=== PATIENT | female | born 1980 | race Caucasian/White ===

== ENCOUNTER 2018-01-16 07:10 | Inpatient (IN) | payer BC ==
[~2018-01-16 07:10] MED LIST: ELECTROLYTE-148 SOLN 1,000 ML IV SCH
[2018-01-16 08:12] VITALS: BMI 29.7
[2018-01-16 08:41] LABS: BASO % 0.3 % (0-2.0); EOS % 2.6 % (0-4.5); HEMATOCRIT 37.1 % (32.4-45.2); HEMOGLOBIN 12.2 GM/dL (10.7-15.3); LYMPH % 31.2 % (8-40); MCH 28.3 pg (25.7-33.7); MEAN CELL VOLUME 85.7 fl (80-96); MEAN PLT VOLUME 10.7 fl (7.5-11.1); MONO % 6.2 % (3.8-10.2); NEUT % 59.7 % (42.8-82.8); PLATELET COUNT 138 K/MM3 (134-434); RBC 4.33 M/mm3 (3.60-5.2); RDW 13.8 % (11.6-15.6); WHITE BLOOD COUNT 6.9 K/mm3 (4.0-10.0)
[2018-01-16 08:54] LABS: INR 0.91 (0.83-1.09); PROTHROMBIN TIME (PATIENT) 10.7 SEC (9.7-13.0)
[2018-01-16 08:56] LABS: ACTIVATED PTT 26.1 SECONDS (25.2-36.5)
[2018-01-16] MEDS ORDERED: TUBERCULIN PPD 5 TU/0.1ML SYRINGE (IN PATIENT USE ONLY) ID ONE (09:00)
[2018-01-16] MEDS ORDERED: PROMETHAZINE HCL 25 MG/1 ML VIAL IVPB ONE (09:02)
[2018-01-16] MEDS ORDERED: BUTORPHANOL TARTRATE 1 MG/ML VIAL IVPB ONE (09:02)
[2018-01-16 09:06] LABS: ANION GAP 9 MMOL/L (8-16); BLOOD UREA NITROGEN 10 mg/dL (7-18); CALCIUM 8.1 mg/dL (8.5-10.1); CHLORIDE 109 mmol/L (98-107); CO2 22 mmol/L (21-32); CREATININE 0.6 mg/dL (0.55-1.3); GLUCOSE,RANDOM 69 mg/dL (74-106); POTASSIUM 4.1 mmol/L (3.5-5.1); SODIUM 140 mmol/L (136-145)
--- NOTE | 2018-01-16 09:10 | HP ---
Past Medical History - Primary Care Physician PCP:: Carlos Wong - Admission Chief Complaint: 37yo P1 with at EGA 40w4d admitted in early spontaneous labor. History of Present Illness: Pt was supposed to come if for labor induction but presented in spontaneous labor. Post term AMA History Source: Patient, Medical Record Limitations to Obtaining History: No Limitations - Past Medical History EXTERNAL AUDITOR: No: Alzheimer's, CVA, Dementia, Migraine, Multiple Sclerosis, Peripheral Neuropathy, Parkinson's, Seizure, Syncope, TIA, Vertigo, Other Cardiovascular: No: AFIB, Aneurysm, Aortic Insufficiency, Aortic Stenosis, CAD, CHF, Deep Vein Thrombosis, HTN, Hyperlipdemia, NH, Mitral Insufficiency, Mitral Stenosis, Murmur, Pulmonary Hypertension, Other Pulmonary: No: Asthma, Bronchitis, Cancer, COPD, O2 Dependent, Pneumonia, Previously Intubated, Pulmonary Embolus, Pulmonary Fibrosis, Sleep Apnea, Other Gastrointestinal: No: Ascites, Cancer, Constipation, Crohn's Disease, Diverticulitis, Diverticulosis, Esophageal Varices, Gastritis, GERD, GI Bleed, Hemorrhoids, Hiatal Hernia, Inflamatory Bowel Disease, Irritable Bowel Disease, Pancreatitis, Peptic Ulcer Disease, Ulcerative Colitis, Other Hepatobiliary: No: Cirrhosis, Cholelithiasis, Cholecystitis, Choledocholithiasis , Hepatitis A, Hepatitis B, Hepatitis C, Other Renal/: No: Renal Failure, Renal Inusuff, BPH, Cancer, Hematuria, Hemodialysis , Neurogenic Bladder, Renal Calculi, UTI, Other Reproductive: No: Ectopic , Endometriosis, Fibroids, PID, Polycystic Ovary Syndrome, Postmenopausal, Other ...: 2 ...Para: 1 ...Term: 1 ...: 0 ...Spon : 0 ...Induced : 0 ...Multiple Gestation: 0 ...LMP: 04/10/17 ... Weeks Gestation by Dates: 40.4 ...EDC by Dates: 01/15/18 ...EDC by Sono: 01/12/18 Heme/Onc: No: Anemia, B12 Deficiency, Bleeding Disorder, Cancer, Current Chemotherapy, Current Radiation Therapy, Hemochromatosis, Hypercoaguable State, Myeloproliferative Synd, Sickle Cell Disease, Sickle Cell Trait, Thrombocytopenia, Other Infectious Disease: No: AIDS, C-Diff, Herpes Zoster, HIV, MRSA, STD's, Tuberculosis, VREF, Other Psych: No: Addictions, Anxiety, Bipolar, Depression, Panic, Psychosis, Schizophrenia, Other Musculoskeletal: No: Bursitis, Chronic low back pain, Hemiparesis, Hemiplegia, Osteoarthritis, Paraplegia, Other Rheumatology: No: Fibromyalgia, Gout, Lupus, Rheumatoid Arthritis, Sarcoidosis, Vasculitis, Other ENT: No: Allergic Rhinitis, Sinusitis, Other Endocrine: No: [place]'s Disease, [place]'s Disease, Diabetes Insipidus, Diabetes Mellitus, Hyperparathyroidism, Hyperthyroidism, Hypothyroidism, Osteopenia, SIADH, Other Dermatology: No: Basal Cell, Cellulitis, Eczema, Melanoma, Psoriasis, Squamous Cell, Other - Past Surgical History Past Surgical History: Yes: None Hx Myomectomy: No Hx Transabdominal Cerclage: No - Smoking History Smoking history: Never smoked Have you smoked in the past 12 months: No - Alcohol/Substance Use Hx Alcohol Use: No History of Substance Use: reports: None - Social History Usual Living Arrangement: Yes: With Spouse, With Child ADL: Independent Occupation: Teacher History of Recent Travel: No Home Medications - Allergies Allergies/Adverse Reactions: Allergies Allergy/AdvReac Type Severity Reaction Status Date / Time No Known Allergies Allergy Verified 01/16/18 08:13 - Home Medications Home Medications: Ambulatory Orders Vit/Iron Fumarate/FA [ Tablet] 1 each PO DAILY 06/10/14 Family Disease History - Family Disease History Family History: Denies Review of Systems - Review of Systems Constitutional: reports: Other (Spontaneous contraction) Eyes: reports: No Symptoms HENT: reports: No Symptoms Neck: reports: No Symptoms Cardiovascular: reports: No Symptoms Respiratory: reports: No Symptoms Gastrointestinal: reports: No Symptoms Genitourinary: reports: No Symptoms Breasts: reports: No Symptoms Reported Musculoskeletal: reports: No Symptoms Integumentary: reports: No Symptoms Neurological: reports: No Symptoms Endocrine: reports: No Symptoms Hematology/Lymphatic: reports: No Symptoms Psychiatric: reports: No Symptoms Pain Intensity: 6 Physical Exam - Maternity Vital Signs: Vital Signs Temperature 97.3 F L 01/16/18 07:10 Pulse Rate 86 01/16/18 07:10 Respiratory Rate 18 01/16/18 07:10 Blood Pressure 125/62 01/16/18 07:10 O2 Sat by Pulse Oximetry (%) Constitutional: Yes: Well Nourished, No Distress, Calm Eyes: Yes: WNL, Conjunctiva Clear HENT: Yes: WNL, Atraumatic, Normocephalic Neck: Yes: WNL, Supple, Trachea Midline Cardiovascular: Yes: WNL, Regular Rate and Rhythm Lungs: Clear to auscultation, Normal air movement - Abdominal Exam/OB Fundal Height: 40 Number of Fetuses: Single Presentation: Vertex Contractions: Yes Regularity: Regular Intensity: Moderate Monitor Mode: External Heart Rate (range): 135 Heart Rate Location: Midline Category: I Accelerations: Non-Uniform Decelerations: None - Vaginal Exam/OB Vaginal Bleediing: No Speculum Exam: No Dilatation (cm): 2 Effacement (%): 80 Amniotic Membrane Status: Intact Presentation: Vertex/Position Station: -3 - Physical Exam Musculoskeletal: Yes: WNL Extremities: Yes: WNL Edema: No Integumentary: Yes: WNL Deep Tendon Reflex Grade: Normal +2 ...Motor Strength: WNL Psychiatric: Yes: WNL, Alert, Oriented - Labs Lab Results: CBC, BMP 01/16/18 08:30 Hemorrhage Risk Assessment - Risk Factors Medium Risk Factors: Yes: None High Risk Factors: Yes: None Risk Score: 1 Risk Level: Medium Risk Assessment/Plan 37yo P1 with at EGA 40w4d admitted in early spontaneous labor. Fetus with Category I tracing and requires no intervention. Patient is stable and requested IV sedation for pain and analgesia. Adequate gynecoid pelvimetry. Plan to monitor labor progress. Anticipate .
[2018-01-16] MEDS ORDERED: BUPIVACAINE HCL/PF 0.25% (2.5MG/ML) 10 ML VIAL ONE (11:43)
[2018-01-16] MEDS ORDERED: FENTANYL/BUPIVACAINE/NS/PF - PCEA - 50 ML DISP.SYRIN EP ONE (11:44)
[2018-01-16] MEDS ORDERED: FENTANYL/BUPIVACAINE/NS/PF - PCEA - 50 ML DISP.SYRIN EP SCH (12:00)
--- NOTE | 2018-01-16 12:36 | PN ---
Ante-Partal Exam - Subjective Subjective: No complaints, s/p epidural Vital Signs: Vital Signs Temperature 98.5 F 01/16/18 09:00 Pulse Rate 80 01/16/18 10:00 Respiratory Rate 18 01/16/18 10:00 Blood Pressure 127/80 01/16/18 10:00 O2 Sat by Pulse Oximetry (%) Bleeding: No Headache: No Visual changes: No Right upper quadrant pain: No Pain (scale 1-10): 0 - Contractions Contractions: Yes Regularity: Regular (q3min) Intensity: Moderate Monitor Mode: External - Exam during Labor Heart Rate: 135 Variability: Moderate Heart Rate Location: Midline Category: I Monitor Accelerations: Present Monitor Decelerations: None Exam: Vaginal Dilatation (cm): 8 Effacement (%): 90 Amniotic Membrane Status: Ruptured (AROM) Amniotic Fluid: Meconium Stained Meconium Staining: Moderate Presentation: Vertex Station: 0 - Intrapartum Hemorrhage Risk Medium Risk Factors: None High Risk Factors: None Risk Score: 0 Risk Level: Low Risk - Assessment/Plan Assessment/Plan: 37yo P1 with spont labor. Pt progressed in active labor. Fetus with Category I tracing. Plan to monitor progress.
[2018-01-16] MEDS ORDERED: OXYTOCIN 20 UNITS in 0.9% NS 20 UNIT/1,000 ML INFUS.BAG IV ONE (12:48)
[2018-01-16] MEDS ORDERED: LIDOCAINE HCL 1% PRESERVATIVE FREE - 30ML VIAL ONE (12:48)
[2018-01-16] MEDS ORDERED: NALOXONE HCL 0.4 MG/ML VIAL IVPUSH PRN (12:48)
[2018-01-16 15:32] LABS: ARTERIAL BLOOD GAS BASE EXCESS -4.1 meq/l (-2-2); ARTERIAL BLOOD GAS PCO2 51.7 mmHg (35-45); ARTERIAL BLOOD GAS pH 7.27 (7.35-7.45)
[2018-01-16 15:35] LABS: ARTERIAL BLOOD GAS PO2 17.9 mmHg (80-100)
[2018-01-16 15:36] LABS: ARTERIAL BLD GAS O2 SATURATION 24.5 % (90-98.9)
[2018-01-16 15:37] LABS: VENOUS PC02 44.6 mmHg (38-52); VENOUS PH 7.32 (7.32-7.42)
[2018-01-16 15:44] LABS: VENOUS PO2 31.9 mmHg (28-48)
[2018-01-16] MEDS ORDERED: BISACODYL 10 MG SUPP.RECT RC PRN (16:45)
[2018-01-16] MEDS ORDERED: SENNOSIDES/DOCUSATE COMBO (SENNA PLUS) TABLET (UD) PO PRN (16:45)
[2018-01-16] MEDS ORDERED: OXYTOCIN 20 UNITS in 0.9% NS 20 UNIT/1,000 ML INFUS.BAG IV SCH (16:45)
[2018-01-16] MEDS ORDERED: BENZOCAINE 28 GM HEMORRHOIDAL OINTMENT TP PRN (16:46)
[2018-01-16] MEDS ORDERED: METHYLERGONOVINE MALEATE 0.2 MG/1 ML AMP IM PRN (16:46)
[2018-01-16] MEDS ORDERED: WITCH HAZEL 50% (TUCKS) 40 PAD/JAR PAD TP PRN (16:46)
[2018-01-16] MEDS ORDERED: BENZOCAINE 20% 57 GM BOTTLE TP PRN (16:46)
[2018-01-16] MEDS: ACETAMINOPHEN 325 MG TABLET (FP) PO PRN (19:46)
[2018-01-16] MEDS: IBUPROFEN 600 MG TABLET (FP) PO PRN (19:47)
--- NOTE | 2018-01-16 21:16 | PN ---
Delivery - Delivery Vaginal Delivery: No Problems, Spontaneous Type of Anesthesia: Epidural Episiotomy/Laceration: Vaginal Extension/lac, 1st degree EBL (cc): 300 Delivery, Single - Stages of Labor Date 1st Stage Initiatied: 01/16/18 Time 1st Stage Initiated: 01:00 Date 2nd Stage Initiated: 01/16/18 Time 2nd Stage Initiated: 14:40 Date of Delivery: 01/16/18 Time of Delivery: 14:53 Date Placenta Delivered: 01/16/18 Time Placenta Delivered: 14:55 Placenta: Yes: Spontaneous, Normal Configuration - Condition of Physical Biochemist/Cd Manufacturing Supervisor Present: No Gender: Male Weight: 3.884 kg Position: Right, OA Total Hours ROM (Hrs/Mins): 2 hours 25 minutes - 1 Minute Total Score: 9 5 Minutes Total Score: 10 - Feeding Plan Initial Plan: Exclusive throughout hospitalization Benefits of Exclusively reinforced: Yes Remarks - Remarks Remarks: w/o complications.
[2018-01-17] MEDS: PRENATAL VITAMINS W/ FOLIC ACID TABLET (FP) PO SCH (10:27)
[2018-01-17] MEDS: ACETAMINOPHEN 325 MG TABLET (FP) PO PRN ×2 (15:37→21:07)
[2018-01-17] MEDS: IBUPROFEN 600 MG TABLET (FP) PO PRN ×2 (15:39→21:07)
[2018-01-17 22:37] VITALS: PULSE 77
--- NOTE | 2018-01-18 07:53 | PN ---
Post Progress Note - Subjective Subjective: Patient without acute complaints. Reports tolerating oral intake without nausea or vomiting. Ambulating without dizziness. Denies fevers or chills. Pain well controlled with oral pain medication. without difficulty. Passing flatus. Post Day: 2 Type of Delivery: Vital Signs: Vital Signs Temperature 97.7 F 01/17/18 21:00 Pulse Rate 77 01/17/18 21:00 Respiratory Rate 18 01/17/18 21:00 Blood Pressure 105/64 01/17/18 21:00 O2 Sat by Pulse Oximetry (%) 100 01/16/18 15:45 Breast Exam: Yes: Engorged Uterus: Yes: Fundus Firm, Fundus below umbilicus Abdomen/GI: Yes: Abdomen soft, Passing flatus, Tolerating PO. No: Abdominal Distention, Tender Lochia: Yes: Serosa Lochia, amount: Small Extremities: Yes: Calves non-tender, Edema (trace) Activity: Ambulating - Labs Labs: CBC WBC 6.9 K/mm3 (4.0-10.0) 01/16/18 08:30 RBC 4.33 M/mm3 (3.60-5.2) 01/16/18 08:30 Hgb 12.2 GM/dL (10.7-15.3) 01/16/18 08:30 Hct 37.1 % (32.4-45.2) D 01/16/18 08:30 MCV 85.7 fl (80-96) 01/16/18 08:30 MCH 28.3 pg (25.7-33.7) 01/16/18 08:30 MCHC 33.0 g/dl (32.0-36.0) 01/16/18 08:30 RDW 13.8 % (11.6-15.6) 01/16/18 08:30 Plt Count 138 K/MM3 (134-434) 01/16/18 08:30 MPV 10.7 fl (7.5-11.1) D 01/16/18 08:30 Absolute Neuts (auto) 4.1 K/mm3 (1.5-8.0) 01/16/18 08:30 Neutrophils % 59.7 % (42.8-82.8) 01/16/18 08:30 Lymphocytes % 31.2 % (8-40) D 01/16/18 08:30 Monocytes % 6.2 % (3.8-10.2) 01/16/18 08:30 Eosinophils % 2.6 % (0-4.5) 01/16/18 08:30 Basophils % 0.3 % (0-2.0) 01/16/18 08:30 Nucleated RBC % 0 % (0-0) 01/16/18 08:30 Assessment/Plan 37 yo PPD # 2 s/p , afebrile, vital signs stable, doing well 1. Patient stable for discharge home today. 2. Patient encouraged to contact MD for: - Severe pain not controlled by oral pain medication - Fevers or chills - Nausea or vomiting, intolerance of oral intake 3. Patient to follow up in office in 4-6 weeks for visit
[2018-01-18] MEDS: IBUPROFEN 600 MG TABLET (FP) PO PRN (08:11)
[2018-01-18] MEDS: ACETAMINOPHEN 325 MG TABLET (FP) PO PRN (08:12)
--- NOTE | 2018-01-18 09:18 | DS ---
Physical Exam-ESOL TEACHER Vital Signs: Vital Signs Temperature 97.7 F 01/17/18 21:00 Pulse Rate 77 01/17/18 21:00 Respiratory Rate 18 01/17/18 21:00 Blood Pressure 105/64 01/17/18 21:00 O2 Sat by Pulse Oximetry (%) 100 01/16/18 15:45 Constitutional: Yes: Well Nourished, No Distress, Calm Eyes: Yes: WNL, Conjunctiva Clear, EOM Intact HENT: Yes: WNL, Atraumatic, Normocephalic Neck: Yes: WNL, Supple, Trachea Midline Cardiovascular: Yes: WNL, Regular Rate and Rhythm Respiratory: Yes: WNL, Regular, CTA Bilaterally Gastrointestinal: Yes: WNL, Normal Bowel Sounds, Soft ...Rectal Exam: Yes: Deferred Renal/: Yes: WNL ....Post : Yes: Uterus firm, Uterus non-tender, Slight lochia rubra Breast(s): Yes: WNL Musculoskeletal: Yes: WNL Extremities: Yes: WNL Edema: Yes Edema: LLE: Trace, RLE: Trace Integumentary: Yes: WNL Neurological: Yes: WNL, Alert, Oriented ...Motor Strength: WNL Psychiatric: Yes: WNL, Alert, Oriented Labs: CBC, BMP 01/16/18 08:30 01/16/18 08:30 Delivery - Delivery Vaginal Delivery: No Problems, Spontaneous Type of Anesthesia: Epidural Episiotomy/Laceration: Vaginal Extension/lac, 1st degree EBL (cc): 300 Delivery, Single - Stages of Labor Date 1st Stage Initiatied: 01/16/18 Time 1st Stage Initiated: 01:00 Date 2nd Stage Initiated: 01/16/18 Time 2nd Stage Initiated: 14:40 Date of Delivery: 01/16/18 Time of Delivery: 14:53 Date Placenta Delivered: 01/16/18 Time Placenta Delivered: 14:55 Placenta: Yes: Spontaneous, Normal Configuration - Condition of Infant Crossing Flagman/Proposition Player Present: No Infant Gender: Male Weight: 3.884 kg Position: Right, OA Total Hours ROM (Hrs/Mins): 2 hours 25 minutes - 1 Minute Total Score: 9 5 Minutes Total Score: 10 - [place] Feeding Plan Initial Plan: Exclusive throughout hospitalization Benefits of Exclusively reinforced: Yes Discharge Summary Reason For Visit: INDUCTION OF LABOR Current Active Problems Vaginal delivery (Acute) Procedures: Principal: w/o problems Hospital Course: Normal recovery Condition: Good - Instructions Diet, Activity, Other Instructions: Physical activity Resume your normal everyday activity as tolerated no heavy lifting or exercise until seen by your surgeon. You may walk unlimited ayden of and climb stairs. You may resume driving the car when you feel safe and comfortable behind the wheel. No sexual activity as instructed. Diet There are no dietary restrictions. Eat healthy, high-fiber foods. Drink 6 to 8 glasses of liquid each day. This will assist in keeping your bowels are regular. Pain management You may take Tylenol or acetaminophen or Ibuprofen (for example, Motrin, Advil etc.) from my pain prescription medication is ordered should be taken as prescribed for moderate to severe pain. Call MD for any of the following: Severe pain not relieved by medication Fever of 101 or higher Excessive bleeding or drainage on dressing Inability to urinate Referrals: Carlos Wong MD [Staff Physician] - Disposition: HOME - Home Medications Comprehensive Discharge Medication List: Ambulatory Orders Vit/Iron Fumarate/FA [ Tablet] 1 each PO DAILY 06/10/14
[2018-01-18] MEDS: PRENATAL VITAMINS W/ FOLIC ACID TABLET (FP) PO SCH (10:27)
[2018-01-18 10:47] VITALS: BP 112/63; TEMP 97.9
== END 2018-01-18 11:45 | disposition home or self-care (01) | DRG 807 ==
LOC: JLDR 07:10 → J3W 16:42
PROVIDERS: ADMIT Obstetrics & Gynecology; ATTEND Obstetrics & Gynecology
PROC: 10E0XZZ Delivery of Products of Conception, External Approach (ICD-10-PCS; principal; 2018-01-16)
PROC: 0HQ9XZZ Repair Perineum Skin, External Approach (ICD-10-PCS; 2018-01-16)
DX: O48.0 Post-term pregnancy (principal); Z37.0 Single live birth; O70.0 First degree perineal laceration during delivery; Z3A.40 40 weeks gestation of pregnancy
CPT/HCPCS: 36415; 36600; 59409; 80048; 82803; 85025; 85610; 85730; 86593; 86850; 86900; 86901

== ENCOUNTER 2021-11-20 03:21 | Emergency (ER) | payer BC ==
[2021-11-20] MEDS ORDERED: CYCLOBENZAPRINE HCL 10 MG TABLET (FP) PO ONE (03:44)
[2021-11-20] MEDS ORDERED: KETOROLAC TROMETHAMINE 30 MG/1 ML VIAL IM ONE (03:44)
[2021-11-20 03:45] VITALS: BP 118/73; PULSE 88; RESP 16; TEMP 98.4; BMI 25.1
[2021-11-20] MEDS ORDERED: CYCLOBENZAPRINE HCL 5 MG TABLET ONE (03:46)
[2021-11-20] MEDS ORDERED: KETOROLAC TROMETHAMINE 30 MG/1 ML VIAL ONE (03:47)
== END 2021-11-20 03:52 | disposition home or self-care (01) ==
LOC: FER 03:21
PROC: 3E0233Z Introduction of Anti-inflammatory into Muscle, Percutaneous Approach (ICD-10-PCS; principal; 2021-11-20)
DX: M62.838 Other muscle spasm (principal)
CPT/HCPCS: 99284-25